=== PATIENT | male | born 1995 | race Two or more races ===

== ENCOUNTER 2018-06-05 21:00 | Emergency (ER) | payer BC, OTHER | END 2018-06-05 23:57 | disposition left against medical advice (07) | LOC: FTE 21:00 | DX: S00.03XA Contusion of scalp, initial encounter (principal); W22.8XXA Striking against or struck by other objects, initial encounter; Z87.891 Personal history of nicotine dependence | CPT/HCPCS: 99283 ==

== ENCOUNTER 2018-06-10 20:26 | Emergency (ER) | payer SELFPAY, BC | END 2018-06-10 22:38 | disposition left against medical advice (07) | LOC: E/R 20:26 | DX: Z53.21 Procedure and treatment not carried out due to patient leaving prior to being seen by health care provider (principal) ==